=== PATIENT | male | born 1955 | race American Indian/Alaskan Native ===

== ENCOUNTER 2023-05-30 22:37 | Inpatient (IN) | payer MEDICAID, MEDICARE ==
[2023-05-30] MEDS: Albuterol/Ipratropium 3.0-0.5 MG/3 ML Neb Soln NEB ONE (22:58)
[2023-05-30 23:02] LABS: BASOPHILS ABSOLUTE AUTO 0.04 K/uL (0.00-0.10); BASOPHILS PERCENT AUTO 0.3 % (0.1-1.3); EOSINOPHILS ABSOLUTE AUTO 0.25 K/uL (0.00-0.40); EOSINOPHILS PERCENT AUTO 1.7 % (0.0-5.4); HEMATOCRIT 42.9 % (38.4-49.7); HEMOGLOBIN 15.2 g/dL (12.9-16.9); IMMATURE GRAN ABSOLUTE AUTO 0.05 K/uL (0.00-0.23); IMMATURE GRAN PERCENT AUTO 0.3 % (0.0-0.7); LYMPHOCYTES ABSOLUTE AUTO 0.93 K/uL (0.8-3.3); LYMPHOCYTES PERCENT AUTO 6.4 % (11.4-47.7); MEAN CORPUSCULAR HEMOGLOBIN 31.5 pg (31.6-35.5); MEAN CORPUSCULAR HGB CONC 35.4 g/dL (31.6-35.5); MONOCYTES ABSOLUTE AUTO 0.81 K/uL (0.20-0.90); MONOCYTES PERCENT AUTO 5.6 % (3.3-12.6); NEUTROPHILS PERCENT AUTO 85.7 % (40.0-78.1); PLATELET COUNT,PLT 177 K/uL (130-375); RED BLOOD CELL COUNT 4.82 M/uL (4.14-5.76); WHITE BLOOD CELL COUNT,WBC 14.6 K/uL (3.2-11.0)
[2023-05-30 23:34] LABS: ALANINE AMINOTRANSFERASE,ALT 15 U/L (12-78); ALBUMIN 3.9 g/dL (3.4-5.0); ALKALINE PHOSPHATASE 121 U/L (46-116); ANION GAP 10.4 mmol/L (5.0-14.0); ASPARTATE AMNIOTRANSFERASE,AST 16 U/L (15-37); BILIRUBIN TOTAL 0.4 mg/dL (0.2-1.0); BLOOD UREA NITROGEN,BUN 21 mg/dL (7-18); CALCIUM 9.1 mg/dL (8.5-10.1); CARBON DIOXIDE,CO2 26 mmol/L (21-32); CHLORIDE,CL 104 mmol/L (100-108); CREATININE 0.8 mg/dL (0.8-1.3); EST CRCL DRUG DOSING (CG) 73.71 mL/min; ESTIMATED GFR 96 mL/min (>60); GLUCOSE RANDOM 102 mg/dL (74-106); POTASSIUM,K 3.7 mmol/L (3.6-5.2); PROTEIN TOTAL,TP 7.9 g/dL (6.4-8.2); SODIUM,NA 140 mmol/L (140-148)
[2023-05-30 23:53] LABS: CORONAVIRUS COVID-19 NAA NEGATIVE (NEGATIVE); INFLUENZA A NAA NEGATIVE (NEGATIVE); INFLUENZA B NAA NEGATIVE (NEGATIVE); RESPIRATORY SYNCYTIAL VIR NAA NEGATIVE (NEGATIVE)
[2023-05-31] MEDS: Sodium Chloride 0.9% 1,000 ML IV ONE (00:30)
[2023-05-31] MEDS: cefTRIAXone 1 GM in Sodium Chloride 0.9% 50 ML IV ONE (02:18)
[2023-05-31] MEDS: Levofloxacin/Dextrose 5%-Water 750 MG in Premix Bag 1 BAG IV SCH (02:53)
[2023-05-31] MEDS ORDERED: Bisacodyl 5 MG Tab PO PRN (03:26)
[2023-05-31] MEDS ORDERED: Morphine 2 MG/ML SYRINGE IVPUSH PRN (03:26)
[2023-05-31] MEDS ORDERED: Naloxone 0.4 MG/ML SDV IVPUSH PRN (03:26)
[2023-05-31] MEDS ORDERED: Docusate Sodium 100 MG Cap PO PRN (03:26)
[2023-05-31] MEDS ORDERED: Ondansetron 4 MG Tab.DIS PO PRN (03:26)
[2023-05-31] MEDS ORDERED: Ondansetron 4 MG/2 ML SDV IV PRN (03:26)
[2023-05-31] MEDS ORDERED: oxyCODONE 5 MG Tab PO PRN (03:26)
[2023-05-31] MEDS: Acetaminophen 325 MG Tab PO PRN (04:03)
[2023-05-31] MEDS: methylPREDNISolone Sodium Succinate 125 MG/2 ML SDV IVPUSH ONE (04:05)
[2023-05-31] MEDS: Sodium Chloride 0.9% 1,000 ML IV SCH (04:31)
[2023-05-31] MEDS: Albuterol/Ipratropium 3.0-0.5 MG/3 ML Neb Soln NEB SCH ×2 (07:01→10:36)
[2023-05-31] MEDS: Enoxaparin 40 MG/0.4 ML Syringe SUBCUT SCH (08:01)
[2023-05-31] MEDS: Lisinopril 20 MG Tab PO SCH (08:01)
[2023-05-31] MEDS: Pantoprazole 40 MG Vial IV SCH (08:02)
[2023-05-31] MEDS: cloNIDine 0.1 MG Tab PO SCH (08:02)
[2023-05-31] MEDS: methylPREDNISolone Sodium Succinate 40 MG/1 ML SDV IVPUSH SCH (08:03)
[2023-05-31] MEDS ORDERED: Albuterol 0.083% 2.5 MG/3 ML Neb Soln NEB PRN (09:12)
[2023-05-31] MEDS: predniSONE 20 MG Tab PO ONE (12:15)
[2023-06-01 05:16] LABS: ANION GAP 11.2 mmol/L (5.0-14.0); CALCIUM 8.5 mg/dL (8.5-10.1); CREATININE 0.8 mg/dL (0.8-1.3); EST CRCL DRUG DOSING (CG) 77.45 mL/min; POTASSIUM,K 3.8 mmol/L (3.6-5.2)
[2023-06-01 05:30] LABS: HEMATOCRIT 35.3 % (38.4-49.7); HEMOGLOBIN 12.4 g/dL (12.9-16.9); MEAN CORPUSCULAR HEMOGLOBIN 31.6 pg (31.6-35.5); MEAN CORPUSCULAR HGB CONC 35.1 g/dL (31.6-35.5); MEAN CORPUSCULAR VOLUME 89.8 fL (81.4-99.0); RED BLOOD CELL COUNT 3.93 M/uL (4.14-5.76); WHITE BLOOD CELL COUNT,WBC 16.8 K/uL (3.2-11.0)
[2023-06-01] MEDS: predniSONE 20 MG Tab PO SCH (09:12)
[2023-06-02] MEDS ORDERED: Pantoprazole 40 MG Tab.CR PO SCH (07:30)
== END 2023-06-01 13:15 | DRG 193 ==
LOC: JP.ED 22:37 → JP.MS 05-31 02:45
PROVIDERS: ADMIT Hospitalist; ATTEND Internal Medicine
DX: J18.9 Pneumonia, unspecified organism (principal); J96.01 Acute respiratory failure with hypoxia; J44.0 Chronic obstructive pulmonary disease with (acute) lower respiratory infection; J44.1 Chronic obstructive pulmonary disease with (acute) exacerbation; Z59.00 Homelessness unspecified; F17.210 Nicotine dependence, cigarettes, uncomplicated; I10 Essential (primary) hypertension; F10.20 Alcohol dependence, uncomplicated; D72.829 Elevated white blood cell count, unspecified; Z79.899 Other long term (current) drug therapy
CPT/HCPCS: 0241U; 36415; 71046; 80048; 80053; 85025; 85027; 87040; 94640; 96361; 96365; 99238; 99284; 99285; 99222; A9270-GY; C9113; J0696; J1650; J1956; J2920; J2930; J3490; J7030; J7512; J7620